=== PATIENT | male | born 1955 | race Caucasian/White ===

== ENCOUNTER 2021-09-02 07:29 | Outpatient (CLI) | payer MEDICARE, SELFPAY ==
--- NOTE | 2021-09-06 15:13 | WPDHOMESLEEP ---
Sleep Study - Home Unattended Date of Study: 09/02/21 <Laney Houston DO - Last Filed: 09/06/21 15:50> Ordering Provider: Alexandra Eid MD <Laney Houston DO - Last Filed: 09/06/21 15:50> Interpreting Provider: Laney Houston DO <Laney Houston DO - Last Filed: 09/06/21 15:50> Home Sleep Study Type: Watch PAT <Laney Houston DO - Last Filed: 09/06/21 15:50> Height: 1.8 m <Laney Houston DO - Last Filed: 09/06/21 15:50> Weight: 97.522 kg <Laney Houston DO - Last Filed: 09/06/21 15:50> Body Mass Index: 29.9 <Laney Houston DO - Last Filed: 09/06/21 15:50> Neck Circumference (inches): 17 <Laney Houston DO - Last Filed: 09/06/21 15:50> Embarrass: 6 <Laney Houston DO - Last Filed: 09/06/21 15:50> Reason for Sleep Study Unrefreshing sleep and daytime hypersomnia <Lnaey Houston DO - Last Filed: 09/06/21 15:50> Sleep History The patient is a 66-year-old male with hypertension, hyperlipidemia, pre diabetes and insomnia that had a home sleep test ordered by his primary care physician for evaluation of sleep apnea. The patient is currently retired. The patient states that he occasionally awakens from sleep short of breath. He rarely awakens at night with heartburn, belching or cough. He frequently snores. He rarely has trouble sleeping when he has a cold. He rarely wakes up gasping for air throughout the night. He occasionally has breathing problems at night. He occasionally sweats excessively at night. He rarely notices heart palpitations or irregular heartbeats during the night. He occasionally falls asleep during the day but never while driving. He rarely feels unable to move when waking up her falling asleep. He denies cataplexy. He occasionally experiences vivid dreamlike scenes upon awakening or falling asleep. He rarely has nightmares. He occasionally feels sad or depressed. He occasionally has anxiety. He occasionally notices parts of his body jerk. He frequently kicks during the night. He frequently experiences crawling and aching feelings in his legs but rarely has leg pain during the night. He rarely grinds his teeth during sleep but occasionally awakens with morning jaw pain. He rarely is bothered by pain during the day and is rarely awakened by pain during the night. He rarely wakes up feeling stiff in the morning. He rarely wakes up with sore or achy muscles. He occasionally wakes up with pain in the neck, spine or other joints. He goes to bed at 11:00 p.m. on both weekdays and weekends. It takes him 10-15 minutes to fall asleep. He wakes up 2-3 times throughout the night to urinate. He wakes up at 8:00 a.m. on both weekdays and weekends. He typically gets 8 hours of sleep per night. He will stay in bed for 10-15 minutes after waking up in the morning. He is currently single and lives alone. He does not consume any caffeinated beverages within 2 hours of bedtime. He does not engage in physical exercise before bedtime. He will watch television before falling asleep. He will take occasional naps in the afternoon or the evening and they are refreshing. He does not consume caffeinated beverages throughout the day. He will drink 2 alcoholic beverages per week. He denies tobacco or recreational drug use. <Laney Houston DO - Last Filed: 09/06/21 15:50> [facility] Past Medical History Medical History: Medical History Depression Dyslipidemia Essential (primary) hypertension Gout History of DVT (deep vein thrombosis) 2013 - post surgery Idiopathic gout Insomnia Pre-diabetes Unspecified osteoarthritis, unspecified site Vertigo <Laney Houston DO - Last Filed: 09/06/21 15:50> Surgical History Surgical History: Surgical History History of a
[2021-09-06 15:19] VITALS: BMI 29.9
== END 2021-09-03 10:26 | disposition home or self-care (01) ==
LOC: ANHCSM 07:30
PROVIDERS: PCP Family Medicine; Visit Provider Family Medicine
DX: R40.0 Somnolence (principal); G47.33 Obstructive sleep apnea (adult) (pediatric); G47.31 Primary central sleep apnea
CPT/HCPCS: 95800

== ENCOUNTER 2021-10-05 12:33 | Outpatient (CLI) | payer MEDICARE, SELFPAY ==
--- NOTE | 2021-10-05 12:52 | ECHO_ITS ---
Patient Info Name: Irvin Sullivan Age: 66 years : 1955 Gender: Male Ht: 70 in Wt: 215 lbs BSA: 2.22 m2 HR: 71 bpm BP: 125 / 80 mmHg Technical Quality: Fair Exam Date: 10/05/2021 1:07 PM Exam Location: [facility] Patient Status: Outpatient Admit Date: 10/05/2021 Staff Ordering Physician: Florencio Eid MD Residential Property Consultant: Dominga Herbert RDCS Attending Provider: Florencio Eid MD Exam Type: CA echo doppler color flow Study Info Indications G47.31 - PRIMARY CENTRAL SLEEP APNEA Complete two-dimensional, color flow and Doppler transthoracic echocardiogram is performed. Summary 1. Complete two-dimensional, color flow and Doppler transthoracic echocardiogram is performed. 2. Left ventricular chamber dimension is normal. 3. Left ventricular systolic function is normal, estimated at 60-65%. 4. There is mildly increased left ventricular wall thickness. 5. The left ventricular diastolic function is grade I diastolic dysfunction. 6. E/e' 11 is mildly elevated. 7. There is mild aortic valve sclerosis. 8. There is trace aortic valve regurgitation. 9. No pulmonary hypertension, estimated pulmonary arterial systolic pressure is 23 mmHg. Left Ventricle E/e' 11 is mildly elevated. Left ventricular chamber dimension is normal. Left ventricular systolic function is normal, estimated at 60-65%. There is mildly increased left ventricular wall thickness. The left ventricular diastolic function is grade I diastolic dysfunction. Right Ventricle Right ventricular chamber dimension is normal. Right ventricular systolic function is normal. Left Atria Left atrial chamber dimension is normal. Right Atria Right atrial chamber dimension is normal. Aortic Valve The aortic valve is trileaflet. There is mild aortic valve sclerosis. There is no aortic valve stenosis. There is trace aortic valve regurgitation. Pulmonic Valve There is no pulmonic regurgitation. Mitral Valve There is no mitral valve stenosis. There is no mitral valve regurgitation. Tricuspid Valve There is no tricuspid valve regurgitation. No pulmonary hypertension, estimated pulmonary arterial systolic pressure is 23 mmHg. Pericardium/Pleural There is no pericardial effusion. Inferior Vena Cava Normal inferior vena cava with >50% collapse upon inspiration consistent with normal right atrial pressure, 5 mmHg. Aorta The aortic root size at the sinus of Valsalva is normal. Left Ventricular Outflow Tract Name Value Normal LVOT 2D LVOT Diameter 2.0 cm LVOT Doppler LVOT Peak Gradient 8 mmHg LVOT Mean Gradient 5 mmHg LVOT VTI 23 cm LVOT VTI/AV VTI Ratio 0.8 LVOT Stroke Volume 70 ml LVOT CO 4.6 l/min LVOT CI 2.1 l/min/m2 Pulmonic Valve Name Value Normal
== END 2021-10-05 12:34 | disposition home or self-care (01) ==
PROVIDERS: PCP Family Medicine; Visit Provider Family Medicine
DX: G47.31 Primary central sleep apnea (principal); I10 Essential (primary) hypertension
CPT/HCPCS: 93306

== ENCOUNTER 2021-10-11 07:47 | Outpatient (CLI) | payer MEDICARE, SELFPAY ==
--- NOTE | 2021-10-19 16:39 | WPDSLEEPSTUD ---
Sleep Study Date of Study: 10/11/21 Ordering Provider: Alexandra Eid MD Interpreting Physician: Laney Houston DO Sleep Study Type: CPAP Titration Height: 1.78 m Weight: 98.883 kg Body Mass Index: 31.2 Neck Circumference (inches): 17 [place]: 7 Reason for Sleep Study The patient had an HSAT on 09/02/2021 that showed an AHI of 26.5. He also had a FITO of 15.1. Sleep History The patient is a 66-year-old male with hypertension, hyperlipidemia, pre diabetes and insomnia that had a home sleep test ordered by his primary care physician for evaluation of sleep apnea. The patient is currently retired. The patient states that he occasionally awakens from sleep short of breath. He rarely awakens at night with heartburn, belching or cough. He frequently snores. He rarely has trouble sleeping when he has a cold. He rarely wakes up gasping for air throughout the night. He occasionally has breathing problems at night. He occasionally sweats excessively at night. He rarely notices heart palpitations or irregular heartbeats during the night. He occasionally falls asleep during the day but never while driving. He rarely feels unable to move when waking up her falling asleep. He denies cataplexy. He occasionally experiences vivid dreamlike scenes upon awakening or falling asleep. He rarely has nightmares. He occasionally feels sad or depressed. He occasionally has anxiety. He occasionally notices parts of his body jerk. He frequently kicks during the night. He frequently experiences crawling and aching feelings in his legs but rarely has leg pain during the night. He rarely grinds his teeth during sleep but occasionally awakens with morning jaw pain. He rarely is bothered by pain during the day and is rarely awakened by pain during the night. He rarely wakes up feeling stiff in the morning. He rarely wakes up with sore or achy muscles. He occasionally wakes up with pain in the neck, spine or other joints. He goes to bed at 11:00 p.m. on both weekdays and weekends. It takes him 10-15 minutes to fall asleep. He wakes up 2-3 times throughout the night to urinate. He wakes up at 8:00 a.m. on both weekdays and weekends. He typically gets 8 hours of sleep per night. He will stay in bed for 10-15 minutes after waking up in the morning. He is currently single and lives alone. He does not consume any caffeinated beverages within 2 hours of bedtime. He does not engage in physical exercise before bedtime. He will watch television before falling asleep. He will take occasional naps in the afternoon or the evening and they are refreshing. He does not consume caffeinated beverages throughout the day. He will drink 2 alcoholic beverages per week. He denies tobacco or recreational drug use. [facility] Past Medical History Medical History Depression Dyslipidemia Essential (primary) hypertension Gout History of DVT (deep vein thrombosis) 2014 - post surgery Idiopathic gout Insomnia Pre-diabetes Unspecified osteoarthritis, unspecified site Vertigo Surgical History Surgical History History of ankle fusion Right -2011 History of total knee arthroplasty (~07/02/14) b/l 2013 S/P insertion of IVC (inferior vena caval) filter 2014 - insertion and removal Family History Family History Father Acute myocardial infarction Family history of Alzheimer's disease Malignant neoplasm of prostate Family history of coronary artery disease Social History Social History Smoking status: Never smoker Second hand tobacco smoke exposure: No Alcohol intake: current Alcohol use details: consumes 5+ hard liquor drinks weekly Substance use: never Substance use type: does not use and marijuana Gender identity
[2021-10-19 16:42] VITALS: BMI 31.2
== END 2021-10-12 07:37 | disposition home or self-care (01) ==
LOC: ANHCSM 07:48
PROVIDERS: PCP Family Medicine; Visit Provider Family Medicine
DX: G47.33 Obstructive sleep apnea (adult) (pediatric) (principal); G47.31 Primary central sleep apnea; G47.39 Other sleep apnea
CPT/HCPCS: 95811

== ENCOUNTER 2022-05-16 09:54 | Outpatient (CLI) | payer MEDICARE, SELFPAY ==
[2022-05-16 18:42] LABS: Basophils Percent Auto 0.7 % (0.2-1.2); Eosinophils Absolute Auto 0.4 K/mm3 (0-0.3); Eosinophils Percent Auto 8.3 % (0-4.4); Hematocrit 44.5 % (42.0-52.0); Immature Granulocyte Absolute 0.01 K/mm3 (0.00-0.031); Immature Granulocyte Percent A 0.2 % (0-0.5); Lymphocytes Absolute Auto 1.43 K/mm3 (0.9-3.2); Lymphocytes Percent Auto 31.4 % (18.3-44.2); Mean Corpuscular HGB Conc 33.7 g/dl (32-36); Mean Corpuscular Hemoglobin 30.6 pg (26-34); Mean Corpuscular Volume 90.8 fl (80-100); Mean Platelet Volume 10.3 fl (7.4-10.4); Monocytes Absolute Auto 0.5 K/mm3 (0.1-0.6); Monocytes Percent Auto 9.9 % (2.6-8.5); Neutrophils Absolute Auto 2.3 K/mm3 (1.3-6.7); Neutrophils Percent Auto 49.5 % (45.5-73.1); Platelet Count Result 171 k/mm3 (150-375); Red Cell Distribution Width 13.1 % (11.5-14.5); White Blood Count 4.6 K/mm3 (4.5-10.0)
[2022-05-16 18:55] LABS: Alanine Aminotransferase 28 U/L (6-50); Albumin Level 4.2 g/dL (3.5-5.1); Alkaline Phosphatase 47 U/L (38-126); Anion Gap 10 mmol/L (8-16); Aspartate Amino Transferase 32 U/L (17-59); Bilirubin,Total 0.7 mg/dL (0.2-1.3); Blood Urea Nitrogen 14 mg/dL (9-20); Calcium 8.8 mg/dL (8.4-10.2); Carbon Dioxide 26 mmol/L (22-30); Chloride 103 mmol/L (98-107); Cholesterol 158 mg/dL (0-200); Estimated Glomerular Filt Rate > 60; Glucose 121 mg/dL (65-110); HDL Direct 49 mg/dL; Potassium 4.7 mmol/L (3.4-5.0); Sodium 139 mmol/L (137-145); Triglycerides 63 mg/dL (<150); Uric Acid 6.2 mg/dL (3.5-8.5)
[2022-05-16 19:08] LABS: LDL Cholesterol Direct 90 mg/dL
[2022-05-16 19:12] LABS: Vitamin D 25 Hydroxy 48.8 ng/mL
== END 2022-05-16 09:55 | disposition home or self-care (01) ==
LOC: ANHGOSHLAB 09:57
PROVIDERS: PCP Family Medicine; Visit Provider Family Medicine
DX: I10 Essential (primary) hypertension (principal); R73.03 Prediabetes; E55.9 Vitamin D deficiency, unspecified; Z12.5 Encounter for screening for malignant neoplasm of prostate; G25.81 Restless legs syndrome; G47.33 Obstructive sleep apnea (adult) (pediatric); E78.5 Hyperlipidemia, unspecified; M10.00 Idiopathic gout, unspecified site
CPT/HCPCS: 36415; 80053; 80061; 82306; 82728; 83036; 84153; 84443; 84550; 85025; G0103

== ENCOUNTER 2022-05-19 08:27 | Outpatient (RCR) | payer MEDICARE, SELFPAY ==
--- NOTE | 2022-05-19 16:09 | PTOPEVAL1 ---
Assessment and note entered by Yuridia Das, PT Evaluation Information Assessment Status Evaluation Diagnosis dizziness and giddiness Onset several years Subjective Information Constant uncomfortable feeling. Standing up, quick motions increase discomfort. Not overwhelming don't feel on center all the time . Just uncomfortable, unsettling. Occasions with eyes were twitching . Had to fur puller while driving once d/t this. Reported Pain Level Pain Score 5: Self Report Assessment PT Clinical Summary Pt reports has had symptoms for mutltiple years. Reports does not have spinning sensation but does not feel on center . Vestibular testing with smooth pursuit, saccades, and other eye motion pt reports some increased nausea or increased symptoms, no nystagmus noted. However vestibular artery testing performed prior to Marcelino Hallpike was positive on left vertebral artery. Further testing ceased, pt educated on return to doctor for further testing and clearance to continue therapy. Doctor's office called and informed as well. No POC initiated currently. Will reassess with clearance from MD related to vertebral artery clearance. Plan of Care PT Services Indicated No These treatments will address the objective and functional deficits as defined above. The patient will be advanced safely and appropriately in order for the patient to progress towards his/her prior level of function. Additional exercises will be introduced and as well as a comprehensive home exercise program upon discharge, if needed, ?to ensure carryover of functional gains achieved in the clinic. This treatment plan has been reviewed and agreement upon by the patient.
--- NOTE | 2022-08-16 09:43 | PTOPDC ---
Assessment and note entered by Yuridia Das, PT Assessment Status Discharge - Pt Not Present Diagnosis dizzienss and giddiness Onset several years Assessment PT Clinical Summary Pt was referred back to MD for vertebral artery testing secondary to (+) testing in clinic. Pt has not returned to therapy since evaluation. This is being discharged from this plan of care. Should pt be able to return to therapy with MD clearance, we would be happy to initiate a new plan of care.
== END 2022-08-16 11:10 | disposition home or self-care (01) ==
LOC: ANHGOSHPT 08:27
PROVIDERS: PCP Family Medicine; Visit Provider Family Medicine
DX: R42 Dizziness and giddiness (principal)
CPT/HCPCS: 97162

== ENCOUNTER 2022-07-04 03:08 | Emergency (ER) | payer MEDICARE, SELFPAY ==
[2022-07-04] VITALS (13 sets, daily range): BP systolic 129–137; BP diastolic 75–85; PULSE 78–111; RESP 12–20; TEMP 36.6; O2SAT 93–96
--- NOTE | ~2022-07-04 | XR_ITS ---
EXAMINATION: XR chest 1V portable DATE: 07/04/2022 03:27 INDICATION: Chest pain. TECHNIQUE: A single frontal view of the chest was obtained. COMPARISON: CT abdomen and pelvis 01/24/2012 FINDINGS: There is no pneumonia, pleural effusion, or pneumothorax. The heart size is normal. There i s a left shoulder arthroplasty. IMPRESSION: 1. No acute cardiopulmonary disease. Reviewed, dictated and finalized at location A. RUCTION LIBRARIAN
--- NOTE | 2022-07-04 03:11 | ECG_ITS ---
Measurements Intervals [place] Rate: 91 P: [place]: 0 QRS: -56 QRSD: 116 T: 111 QT: 334 QTc: 411 Interpretive Statements SINUS RHYTHM WITH FREQUENT PAC'S LEFT ANTERIOR HEMIBLOCK POSSIBLE LEFT VENTRICULAR HYPERTROPHY [VOLTAGE CRITERIA PLUS LAE OR QRS WIDENING] I/aVL/V5/V6] NO PREVIOUS ECG AVAILABLE FOR COMPARISON Electronically Signed On 07-04-2022 6:27:53 PLANNING CONSULTANT by Chung Edwards M.D.
--- NOTE | 2022-07-04 03:20 | ED.GENADULT ---
HPI - General Adult General Chief complaint: Arrhythmia/Palpitations Stated complaint: PALPITATIONS Source: RN notes reviewed History of Present Illness HPI narrative: Patient presents emergency department from home via EMS for palpitations. Patient states symptoms again approximately 45 minutes prior to arrival states it awoke him from sleep and he states that he felt like his heart was beating irregularly. He denies having any chest pain or shortness of breath with the symptoms he denies any fevers or chills. States has had no history of an irregular heartbeat before in the past. States no increased caffeine use this evening he denies any tobacco use patient states that yesterday was his birthday and he was out drinking more alcohol than usual Related Data Allergies Allergy/AdvReac Type Severity Reaction Status Date / Time No Known Allergies Allergy Unknown Verified 07/04/22 03:14 Review of Systems Review of Systems: Gen.: Denies fevers or chills ENT: Denies congestion Respiratory: Denies shortness of breath or cough CV: see HPI GI: Denies abdominal pain nausea, emesis or diarrhea Musculoskeletal: Denies back pain or muscle pain Neuro: Denies numbness, tingling, weakness or focal weakness Skin: Denies rash Except as documented, all other systems reviewed and negative [facility] Past Medical History Medical History Depression Dyslipidemia Essential (primary) hypertension Gout History of DVT (deep vein thrombosis) 2013 - post surgery Idiopathic gout Insomnia Pre-diabetes Unspecified osteoarthritis, unspecified site Vertigo Vitamin D deficiency Surgical History Surgical History History of ankle fusion Right -2011 History of left shoulder replacement (~06/2020) History of total knee arthroplasty (~07/02/14) b/l 2013 S/P insertion of IVC (inferior vena caval) filter 2014 - insertion and removal Family History Family History Father Acute myocardial infarction Family history of Alzheimer's disease Malignant neoplasm of prostate Family history of coronary artery disease Social History Social History Smoking status: Never smoker Second hand tobacco smoke exposure: No Alcohol intake: current Alcohol use details: consumes 5+ hard liquor drinks weekly Substance use: never Substance use type: does not use and marijuana Lack of Transportation: No Lack of Food: Never True Current Housing: I Have Housing Concerned About Future Housing: No Difficulty Paying Gas/Electric Bills: No Difficulty Paying for Meds: No Currently Unemployed: No Education: Bachelor's Degree Difficulty w/ Childcare or Family Care: No Gender identity (if verbalized by the patient): Male Exam Narrative: APPEARANCE: No acute distress, nontoxic, resting in bed EYES: EOMI HEENT: Normocephalic, atraumatic, OMM RESPIRATORY: No respiratory distress Clear to auscultation bilaterally with no rhonchi wheezing or rales. CARDIOVASCULAR: Irregular irregular without murmurs rubs or gallops. ABDOMINAL: Soft, nontender, nondistended, no rebound or guarding MUSCULOSKELETAl: Moves all extremities. No clubbing, cyanosis or edema. NEURO: Awake and alert. Following commands, speech normal, no focal deficits SKIN:: Warm, dry. No rashes lesions or abrasions PSYCHIATRIC: Normal affect/mood, Course Course Emergency Course: Patient with a CHADS2 score of 1 Patient states he is on metoprolol and amlodipine at home he normally takes his medications around 8 in the morning Discussed with Dr. Edwards presentation work-up this time recommends patient's metoprolol be increased to 50 mg daily recommends no anticoagulation Discussed with patient results of workup and diagnosis. Discussed need for follow-up with primary
[2022-07-04 03:32] LABS: Basophils Percent Auto 0.7 % (0.2-1.2); Eosinophils Absolute Auto 0.4 K/mm3 (0-0.3); Hematocrit 42.4 % (42.0-52.0); Hemoglobin 14.6 g/dL (14.0-18.0); Immature Granulocyte Absolute 0.01 K/mm3 (0.00-0.031); Immature Granulocyte Percent A 0.2 % (0-0.5); Immature Platelet Fraction Pct 3.5 % (0.9-11.2); Lymphocytes Absolute Auto 1.69 K/mm3 (0.9-3.2); Lymphocytes Percent Auto 30.8 % (18.3-44.2); Mean Corpuscular HGB Conc 34.4 g/dl (32-36); Mean Corpuscular Hemoglobin 30.3 pg (26-34); Monocytes Absolute Auto 0.6 K/mm3 (0.1-0.6); Monocytes Percent Auto 10.6 % (2.6-8.5); Neutrophils Absolute Auto 2.7 K/mm3 (1.3-6.7); Neutrophils Percent Auto 49.7 % (45.5-73.1); Platelet Count Result 149 k/mm3 (150-375); Red Blood Count 4.82 M/mm3 (4.6-6.20); Red Cell Distribution Width 12.6 % (11.5-14.5); White Blood Count 5.5 K/mm3 (4.5-10.0)
[2022-07-04 03:36] LABS: Partial Thromboplastin Time 27.3 SECONDS (22.3-36.8)
[2022-07-04 03:39] LABS: Alanine Aminotransferase 32 U/L (6-50); Albumin Level 4.3 g/dL (3.5-5.1); Alkaline Phosphatase 62 U/L (38-126); Anion Gap 5 mmol/L (8-16); Aspartate Amino Transferase 35 U/L (17-59); Bilirubin,Total 0.4 mg/dL (0.2-1.3); Blood Urea Nitrogen 17 mg/dL (9-20); Calcium 8.6 mg/dL (8.4-10.2); Carbon Dioxide 29 mmol/L (22-30); Chloride 105 mmol/L (98-107); Estimated CRCL calculation 91 ml/min; Estimated Glomerular Filt Rate > 60; Glucose 123 mg/dL (65-110); Lipase 84 U/L (23-300); Magnesium 1.9 mg/dL (1.6-2.3); Potassium 3.7 mmol/L (3.4-5.0); Sodium 139 mmol/L (137-145)
[2022-07-04 03:51] LABS: Troponin I < 0.012 ng/mL (0.000-0.034)
[2022-07-04] MEDS: METOPROLOL SUCCINATE EXT REL 50 MG TABCR PO (05:10)
[2022-07-04 05:14] LABS: Influenza A QL RT-PCR Negative (Negative); Influenza B QL RT-PCR Negative (Negative); SARS-CoV-2 RNA PCR Negative
[2022-07-04 06:53] LABS: Troponin I < 0.012 ng/mL (0.000-0.034)
== END 2022-07-04 07:22 | disposition home or self-care (01) ==
PROVIDERS: Emergency Provider Emergency Medicine; PCP Family Medicine
DX: I48.91 Unspecified atrial fibrillation (principal); Z20.822 Contact with and (suspected) exposure to COVID-19; E78.5 Hyperlipidemia, unspecified; I10 Essential (primary) hypertension; M10.9 Gout, unspecified; R73.03 Prediabetes; M10.00 Idiopathic gout, unspecified site; M19.90 Unspecified osteoarthritis, unspecified site; E55.9 Vitamin D deficiency, unspecified; Z86.718 Personal history of other venous thrombosis and embolism; Z96.612 Presence of left artificial shoulder joint; Z96.653 Presence of artificial knee joint, bilateral; I44.4 Left anterior fascicular block
CPT/HCPCS: 36415; 71045; 80053; 83690; 83735; 84443; 84484; 85025; 85055; 85610; 85730; 87636; 93005; 99284; A9270

== ENCOUNTER 2022-07-07 10:01 | Outpatient (CLI) | payer MEDICARE, SELFPAY ==
--- NOTE | ~2022-07-07 | MR_ITS ---
MRI of the brain Clinical History: Vertigo Technique: Axial and sagittal T1-weighted images were acquired. These were followed by axial T2-weigh maximo, diffusion weighted, gradient, and FLAIR images. Findings: There is no acute infarct, intracranial hemorrhage, or mass lesion. There are mild to moder ate chronic white matter changes in the periventricular white matter bilaterally. There is a focal ar ea of slightly more prominent FLAIR hyperintense signal in the anterior left temporal lobe (axial FLA IR image 12). Ventricles and subarachnoid spaces are unremarkable. Orbits are unremarkable. Paranasal sinuses and m astoid air cells are clear. Major intracranial flow voids are grossly intact. Sagittal midline structures are intact. IMPRESSION: Focal area of FLAIR hyperintense signal in the anterior left temporal lobe in the subcortical white m atter. This could reflect chronic microvascular ischemic change, though the location and relative pro minence are somewhat atypical. Consider postcontrast examination to more definitively exclude any enh ancing pathologic process at this location, as well as possibly follow-up exam in 3-6 months to asses s for stability, especially if patient's symptoms persist. [id number] background typical chronic microvascular ischemic changes in the periventricular whi te matter bilaterally. Reviewed, dictated and finalized at location [] RAM EVALUATION CONSULTANT IMPRESSION: Focal area of FLAIR hyperintense signal in the anterior left temporal lobe in t he subcortical white matter. This could reflect chronic microvascular ischemic change, though the location and relative prominence are somewhat atypical. Cons ider postcontrast examination to more definitively exclude any enhancing pathol ogic process at this location, as well as possibly follow-up exam in 3-6 months to assess for stability, especially if patient's symptoms persist. [id number] background typical chronic microvascular ischemic changes in t he periventricular white matter bilaterally.
--- NOTE | ~2022-07-07 | CT_ITS ---
CT ANGIOGRAM NECK AND HEAD History: Vertigo, dizziness. Technique: Serial spiral axial images through the head and neck were obtained during arterial phase I V injection of 100 cc of Omnipaque 350. 3-D postprocessing and MIP images were then reconstructed on the remote workstation. Dose reduction technique was used on this scan by utilizing automated exposur e control and iterative reconstruction technique. The dose-length product (DLP) was 1866.31 mGy-cm. CTA neck findings: There are minimal calcified plaques at the proximal internal carotid arteries juanjose aterally without stenosis. The proximal right internal carotid artery demonstrates 0% stenosis relati ve to the normal distal artery lumen diameter. The proximal left internal carotid artery demonstrates 0% stenosis relative to the normal distal artery lumen diameter. Common carotid and external carotid arteries are patent bilaterally. CTA head findings: Distal vertebral, basilar artery, and posterior cerebral arteries are patent. Dist al internal carotid arteries, middle cerebral arteries, and anterior cerebral arteries are patent. No large vessel occlusion. No stenosis or aneurysm. Impression: No significant abnormality seen. Reviewed, dictated and finalized at location [] LTY MAKER Impression: No significant abnormality seen.
== END 2022-07-07 10:02 | disposition home or self-care (01) ==
PROVIDERS: PCP Family Medicine; Visit Provider Student in an Organized Health Care Education/Training Program
DX: R42 Dizziness and giddiness (principal); R93.0 Abnormal findings on diagnostic imaging of skull and head, not elsewhere classified
CPT/HCPCS: 70496; 70498; 70551; Q9967

== ENCOUNTER 2022-08-09 10:42 | Outpatient (CLI) | payer MEDICARE, SELFPAY ==
--- NOTE | ~2022-08-09 | MR_ITS ---
MRI of the brain Clinical History: Abnormal MR finding Technique: Axial and sagittal T1-weighted images were acquired. These were followed by axial T2-weigh maximo, diffusion weighted, gradient, and FLAIR images. Following intravenous administration of 19 cc Mu ltiHance gadolinium, T1-weighted fat-sat imaging was performed in the axial, coronal, and sagittal pl anes. COMPARISON: 07/07/2022 Findings: No acute infarct or intracranial hemorrhage seen. Again identified is focal area of promine nt FLAIR hyperintense signal at the anterior left temporal lobe. Mild background chronic white matter changes in the periventricular white matter otherwise are also stable. Ventricles and subarachnoid spaces are unremarkable. Orbits are unremarkable. Paranasal sinuses and m astoid air cell are clear. Major intracranial flow voids are intact. Sagittal midline structures are intact. No abnormal postcontrast enhancement identified. In particular, no enhancement associated with the FL AIR abnormality at the anterior left temporal lobe. IMPRESSION: Stable focal area of avid FLAIR hyperintensity at the anterior left temporal lobe, without postcontra st enhancement. This remains nonspecific. Recommend follow-up MR in 6-12 months. Additional mild chronic bilateral white matter changes are also stable from prior exam. Reviewed, dictated and finalized at location M. TEGIC PROCUREMENT MANAGER IMPRESSION: Stable focal area of avid FLAIR hyperintensity at the anterior left temporal lo be, without postcontrast enhancement. This remains nonspecific. Recommend follo w-up MR in 6-12 months. Additional mild chronic bilateral white matter changes are also stable from lisseth or exam.
== END 2022-08-09 10:43 | disposition home or self-care (01) ==
PROVIDERS: PCP Family Medicine; Visit Provider Student in an Organized Health Care Education/Training Program
DX: R90.89 Other abnormal findings on diagnostic imaging of central nervous system (principal)
CPT/HCPCS: 70553; A9577

== ENCOUNTER 2023-05-23 14:10 | Outpatient (CLI) | payer MEDICARE, SELFPAY ==
[2023-05-23 18:42] LABS: Alanine Aminotransferase 51 U/L (6-50); Albumin Level 4.7 g/dL (3.5-5.1); Alkaline Phosphatase 44 U/L (38-126); Anion Gap 6 mmol/L (8-16); Aspartate Amino Transferase 46 U/L (17-59); Bilirubin,Total 0.8 mg/dL (0.2-1.3); Blood Urea Nitrogen 17 mg/dL (9-20); Calcium 9.7 mg/dL (8.4-10.2); Carbon Dioxide 30 mmol/L (22-30); Chloride 102 mmol/L (98-107); Cholesterol 226 mg/dL (0-200); Estimated Glomerular Filt Rate > 60; Glucose 103 mg/dL (65-110); HDL Direct 38 mg/dL; Potassium 4.2 mmol/L (3.4-5.0); Sodium 138 mmol/L (137-145); Triglycerides 326 mg/dL (<150); Uric Acid 7.2 mg/dL (3.5-8.5)
[2023-05-23 18:57] LABS: LDL Cholesterol Direct 98 mg/dL
[2023-05-23 19:10] LABS: Prostate Specific Antigen 4.3 ng/mL (< OR = 4.0)
[2023-05-23 20:05] LABS: Basophils Percent Auto 0.6 % (0.2-1.2); Eosinophils Absolute Auto 0.2 K/mm3 (0-0.3); Eosinophils Percent Auto 2.7 % (0-4.4); Hematocrit 45.1 % (42.0-52.0); Hemoglobin 15.7 g/dL (14.0-18.0); Immature Granulocyte Absolute 0.02 K/mm3 (0.00-0.031); Immature Granulocyte Percent A 0.3 % (0-0.5); Lymphocytes Absolute Auto 1.48 K/mm3 (0.9-3.2); Lymphocytes Percent Auto 22.6 % (18.3-44.2); Mean Corpuscular HGB Conc 34.8 g/dl (32-36); Mean Corpuscular Hemoglobin 30.4 pg (26-34); Mean Corpuscular Volume 87.4 fl (80-100); Mean Platelet Volume 10.5 fl (7.4-10.4); Monocytes Absolute Auto 0.6 K/mm3 (0.1-0.6); Monocytes Percent Auto 8.9 % (2.6-8.5); Neutrophils Absolute Auto 4.3 K/mm3 (1.3-6.7); Neutrophils Percent Auto 64.9 % (45.5-73.1); Platelet Count Result 174 k/mm3 (150-375); Red Blood Count 5.16 M/mm3 (4.6-6.20); Red Cell Distribution Width 12.3 % (11.5-14.5); White Blood Count 6.6 K/mm3 (4.5-10.0)
[2023-05-23 21:10] LABS: Vitamin D 25 Hydroxy 51.6 ng/mL
== END 2023-05-23 14:11 | disposition home or self-care (01) ==
LOC: ANHGOSHLAB 14:11
PROVIDERS: PCP Family Medicine; Visit Provider Family Medicine
DX: E78.5 Hyperlipidemia, unspecified (principal); E53.8 Deficiency of other specified B group vitamins; M10.00 Idiopathic gout, unspecified site; R73.03 Prediabetes; I10 Essential (primary) hypertension; Z12.5 Encounter for screening for malignant neoplasm of prostate; E55.9 Vitamin D deficiency, unspecified
CPT/HCPCS: 36415; 80053; 80061; 82306; 82607; 83036; 84153; 84443; 84550; 85025; G0103

== ENCOUNTER 2023-06-28 10:30 | Outpatient (CLI) | payer MEDICARE, SELFPAY ==
[2023-06-28 12:54] LABS: Alanine Aminotransferase 47 U/L (6-50); Albumin Level 4.7 g/dL (3.5-5.1); Alkaline Phosphatase 51 U/L (38-126); Anion Gap 12 mmol/L (8-16); Aspartate Amino Transferase 53 U/L (17-59); Blood Urea Nitrogen 27 mg/dL (9-20); Calcium 9.8 mg/dL (8.4-10.2); Carbon Dioxide 25 mmol/L (22-30); Chloride 100 mmol/L (98-107); Estimated Glomerular Filt Rate > 60; Glucose 149 mg/dL (65-110); Potassium 4.2 mmol/L (3.4-5.0); Sodium 137 mmol/L (137-145)
[2023-06-30 21:50] LABS: PSA, Free 0.65 ng/mL; PSA, Total 3.1 ng/mL (<=4.0); Percent Free Prostate Spec Ag 21 % (>25)
== END 2023-06-28 10:31 | disposition home or self-care (01) ==
LOC: ANHGOSHLAB 10:31
PROVIDERS: PCP Family Medicine; Visit Provider Family Medicine
DX: R74.01 Elevation of levels of liver transaminase levels (principal); R97.20 Elevated prostate specific antigen [PSA]; I10 Essential (primary) hypertension
CPT/HCPCS: 36415; 80053; 84153; 84154

== ENCOUNTER 2023-07-07 03:48 | Day surgery (SDC) | payer MEDICARE, SELFPAY ==
[2023-06-22 09:51] VITALS: BMI 30.7
--- NOTE | 2023-07-05 12:22 | SUR.PREOP ---
Patient called regarding upcoming procedure. Reviewed preop instructions, appointment times, and procedure prep.
[2023-07-07 11:50] VITALS: BP 137/89; PULSE 78; RESP 18; TEMP 36.3; O2SAT 98; BMI 30.4
[2023-07-07] MEDS: LACTATED RINGERS 1,000 ML 150 ML IV CONT (12:17)
--- NOTE | 2023-07-07 12:37 | WPDANESEPPF ---
Anes - Initial Pre Proc Eval Procedure: Operation Date: 07/07/23 13:00 Proposed Procedures p Colonoscopy - True Haider MD Date/Time: 07/07/23 12:37 Surgeon: True Haider MD Pre Op Diagnosis: Hx colon polyps Patient Data Age: 68 Gender: M Height: 1.8 m Weight: 98.8 kg Last Vital Signs Temp 36.3 C L 07/07/23 11:50 Pulse 78 07/07/23 11:50 Resp 18 07/07/23 11:50 BP 137/89 07/07/23 11:50 Pulse Ox 98 07/07/23 11:50 O2 Del Method Room Air 07/07/23 11:50 Allergies Allergy/AdvReac Type Severity Reaction Status Date / Time No Known Allergies Allergy Unknown Verified 07/07/23 12:02 Home Medications Medication Instructions Recorded Confirmed Type allopurinol 100 mg tablet 100 mg PO DAILY #90 tabs 11/03/22 07/07/23 Rx amlodipine 5 mg tablet 5 mg PO DAILY #90 tabs 05/19/23 07/07/23 Rx metoprolol succinate 50 mg 50 mg PO DAILY #90 tabs 05/19/23 07/07/23 Rx tablet,extended release 24 hr pravastatin 40 mg tablet 40 mg PO QHS #90 tabs 06/28/23 07/07/23 Rx Patient hx anesthesia problems: none Family hx anesthesia problems: none Results Review: All pre-operative results and documents have been reviewed as part of the pre-operative evaluation. [facility] Past Medical History Medical History Depression Dyslipidemia Essential (primary) hypertension Gout Heart murmur History of colon polyps History of DVT (deep vein thrombosis) 2013 - post surgery Idiopathic gout Insomnia Pre-diabetes Unspecified osteoarthritis, unspecified site Vertigo Vitamin D deficiency Surgical History Surgical History History of ankle fusion Right -2011 History of left shoulder replacement (~06/2020) History of total knee arthroplasty (~07/02/14) b/l 2013 S/P insertion of IVC (inferior vena caval) filter 2013 - insertion and removal Family History Family History Father Acute myocardial infarction Family history of Alzheimer's disease Malignant neoplasm of prostate Family history of coronary artery disease Social History Social History Smoking status: Never smoker Second hand tobacco smoke exposure: No Alcohol intake: current Drinks per week: 6 Alcohol use details: consumes 5+ hard liquor drinks weekly Substance use: never Substance use type: does not use Lack of Transportation: No Lack of Food: Never True Current Housing: I Have Housing Concerned About Future Housing: No Difficulty Paying Gas/Electric Bills: No Difficulty Paying for Meds: No Currently Unemployed: No Education: Bachelor's Degree Difficulty w/ Childcare or Family Care: No Living arrangements: with family Gender identity (if verbalized by the patient): Male Spiritual care concerns: No Anes - Eval Final PreProcedure Day of Procedure 07/07/23 12:37 Patient weight: obese Heart: regular rate and rhythm Lungs: clear to auscultation Airway: Mallampati scale class II Neurological: alert and oriented Last oral intake: >/= 8 hours ASA classification: III Emergent: no Anesthetic plan: proceed Anesthesia type and monitoring: general GIVS and standard monitoring Results Review: All pre-operative results and documents have been reviewed as part of the pre-operative evaluation. Informed Consent: The patient's anesthetic plan and its attendant risks and benefits were discussed with the patient/family/POA. Questions were solicited and answers provided to the satisfaction of the patient/family/POA.
--- NOTE | 2023-07-07 13:37 | PM.HPGS ---
History of Present Illness History of Present Illness Consent: Risks, benefits, and alternatives have been discussed and questions answered. Patient agrees to proceed with procedure. Chief complaint: Hx colon polyps Narrative: Irvin Sullivan is a 68 year old male here for screening colonoscopy, last on in 2018 with hyperplastic polyps Review of Systems Constitutional: Constitutional: Denies headache(s) and Denies weakness Eyes: Eyes: Denies blurry vision ENT: Reports Normal hearing present, Denies headache(s) and Denies neck pain Cardiovascular: Cardiovascular: Denies chest pain and Denies dyspnea Respiratory: Respiratory: Denies dyspnea Gastrointestinal: Gastrointestinal: Reports no additional gastrointestinal complaints Genitourinary: Genitourinary: Denies dysuria Musculoskeletal: Musculoskeletal: Denies neck pain Integumentary/Breasts: Skin/Breast: Denies dry skin Neurologic: Reports Normal hearing present, Denies headache(s) and Denies weakness Psychiatric: Psychiatric: Denies anxiety Endocrine: Endocrine: Denies change in body appearance Hematologic/Lymphatic: Hematologic/Lymphatic: Denies easy bleeding Allergic/Immunologic: Allergic/Immunologic: Denies urticaria PMFSH Past Medical History Medical History (Updated 07/07/23 @ 13:38 by True Haider MD) Colon cancer screening Depression Dyslipidemia Essential (primary) hypertension Gout Heart murmur History of colon polyps History of DVT (deep vein thrombosis) 2014 - post surgery Idiopathic gout Insomnia Pre-diabetes Unspecified osteoarthritis, unspecified site Vertigo Vitamin D deficiency Surgical History Surgical History History of ankle fusion Right -2011 History of left shoulder replacement (~06/2020) History of total knee arthroplasty (~07/02/14) b/l 2013 S/P insertion of IVC (inferior vena caval) filter 2014 - insertion and removal Family History Family History Father Acute myocardial infarction Family history of Alzheimer's disease Malignant neoplasm of prostate Family history of coronary artery disease Social History Social History Smoking status: Never smoker Second hand tobacco smoke exposure: No Alcohol intake: current Drinks per week: 6 Alcohol use details: consumes 5+ hard liquor drinks weekly Substance use: never Substance use type: does not use Lack of Transportation: No Lack of Food: Never True Current Housing: I Have Housing Concerned About Future Housing: No Difficulty Paying Gas/Electric Bills: No Difficulty Paying for Meds: No Currently Unemployed: No Education: Bachelor's Degree Difficulty w/ Childcare or Family Care: No Living arrangements: with family Gender identity (if verbalized by the patient): Male Spiritual care concerns: No Meds Home Medications and Allergies Home Medications Medication Instructions Recorded Confirmed Type allopurinol 100 mg tablet 100 mg PO DAILY #90 tabs 11/03/22 07/07/23 Rx amlodipine 5 mg tablet 5 mg PO DAILY #90 tabs 05/19/23 07/07/23 Rx metoprolol succinate 50 mg 50 mg PO DAILY #90 tabs 05/19/23 07/07/23 Rx tablet,extended release 24 hr pravastatin 40 mg tablet 40 mg PO QHS #90 tabs 06/28/23 07/07/23 Rx Allergies Allergy/AdvReac Type Severity Reaction Status Date / Time No Known Allergies Allergy Unknown Verified 07/07/23 12:02 Vital Signs Vital Signs - 24 hr 07/07/23 11:50 Temperature 97.4 F L Pulse Rate 78 Respiratory Rate 18 Blood Pressure 137/89 Pulse Oximetry 98 Oxygen Delivery Room Air Exam Const: General: comfortable and no acute distress HENMT: Face/Nose/Sinus: Normal nares present Eyes: General: appearance normal, both eyes and all related structures Neck: Neck: no JVD Resp: Auscultation: clear to
[2023-07-07 13:57] VITALS: BP 107/73; PULSE 62; RESP 12; O2SAT 95
[2023-07-07 14:07] VITALS: BP 112/75; PULSE 58; RESP 12; O2SAT 95
[2023-07-07 14:17] VITALS: BP 109/90; PULSE 61; RESP 22; O2SAT 99
--- NOTE | 2023-07-07 16:28 | SUR.PHASEII ---
PT CAME TO UNIT SAYING HE LOST HIS PHONE FROM WHEN HE WAS HERE. STAFF WENT THRU THE [employer] LOOKING FOR CELL PHONE AND WERE UNABLE TO LOCATE IT. ASKED THE PATIENT TO CHECK THE RESPIRATORY PHYSICIAN'S CAR BECAUSE SOMETIMES THE CELL PHONE GETS LOST IN BETWEEN THE SEAT. [phone] CALL PATIENT'S DAUGHTER -EMERGENCY CONTACT- LEFT MESSAGE TO LET HER KNOW HER DAD'S PHONE IS MISSING AND ASKED TO PASS THE MESSAGE ON TO CHECK THE RESPIRATORY PHYSICIAN'S CAR AND UNDER THE SEATS.
--- NOTE | 2023-07-07 16:52 | SUR.PHASEII ---
Daughter Holly called and stated the phone was found in the Son's car
== END 2023-07-07 14:38 | disposition home or self-care (01) ==
PROVIDERS: PCP Family Medicine; Visit Provider Internal Medicine Gastroenterology
PROC: 0DJD8ZZ Inspection of Lower Intestinal Tract, Via Natural or Artificial Opening Endoscopic (ICD-10-PCS; CPT 45378; principal; 2023-07-07 13:00)
DX: Z12.11 Encounter for screening for malignant neoplasm of colon (principal); K57.30 Diverticulosis of large intestine without perforation or abscess without bleeding; D12.6 Benign neoplasm of colon, unspecified; K64.8 Other hemorrhoids; I10 Essential (primary) hypertension; E78.5 Hyperlipidemia, unspecified; M10.9 Gout, unspecified
CPT/HCPCS: 45385; 88305; J7120

== ENCOUNTER 2024-05-22 14:36 | Outpatient (CLI) | payer MEDICARE, SELFPAY ==
[2024-05-22 20:04] LABS: Basophils Percent Auto 0.7 % (0.2-1.2); Eosinophils Absolute Auto 0.2 K/mm3 (0-0.3); Eosinophils Percent Auto 4.4 % (0-4.4); Hematocrit 44.3 % (42.0-52.0); Hemoglobin 15.2 g/dL (14.0-18.0); Immature Granulocyte Absolute 0.01 K/mm3 (0.00-0.031); Immature Granulocyte Percent A 0.2 % (0-0.5); Lymphocytes Absolute Auto 1.66 K/mm3 (0.9-3.2); Lymphocytes Percent Auto 30.2 % (18.3-44.2); Mean Corpuscular HGB Conc 34.3 g/dl (32-36); Mean Corpuscular Hemoglobin 30.5 pg (26-34); Mean Corpuscular Volume 88.8 fl (80-100); Mean Platelet Volume 10.1 fl (7.4-10.4); Monocytes Absolute Auto 0.6 K/mm3 (0.1-0.6); Monocytes Percent Auto 10.6 % (2.6-8.5); Neutrophils Percent Auto 53.9 % (45.5-73.1); Platelet Count Result 155 k/mm3 (150-375); Red Blood Count 4.99 M/mm3 (4.6-6.20); Red Cell Distribution Width 12.6 % (11.5-14.5); White Blood Count 5.5 K/mm3 (4.5-10.0)
[2024-05-22 20:29] LABS: Alanine Aminotransferase 39 U/L (6-50); Albumin Level 4.8 g/dL (3.5-5.1); Alkaline Phosphatase 44 U/L (38-126); Anion Gap 12 mmol/L (4-12); Aspartate Amino Transferase 42 U/L (17-59); Blood Urea Nitrogen 18 mg/dL (9-20); Calcium 9.6 mg/dL (8.4-10.2); Carbon Dioxide 27 mmol/L (22-30); Chloride 102 mmol/L (98-107); Cholesterol 202 mg/dL (0-200); Estimated Glomerular Filt Rate > 60; Glucose 105 mg/dL (65-110); HDL Direct 48 mg/dL; Potassium 4.2 mmol/L (3.4-5.0); Sodium 141 mmol/L (137-145); Triglycerides 137 mg/dL (<150); Uric Acid 6.6 mg/dL (3.5-8.5)
[2024-05-22 20:39] LABS: LDL Cholesterol Direct 104 mg/dL
[2024-05-22 20:57] LABS: Prostate Specific Antigen 4.1 ng/mL (< OR = 4.0)
[2024-05-22 20:59] LABS: Vitamin D 25 Hydroxy 47.8 ng/mL
[2024-05-22 21:32] LABS: Hemoglobin A1C 6.2 % (<5.7)
== END 2024-05-22 14:37 | disposition home or self-care (01) ==
LOC: ANHGOSHLAB 14:37
PROVIDERS: PCP Family Medicine; Visit Provider Family Medicine
DX: E55.9 Vitamin D deficiency, unspecified (principal); Z12.5 Encounter for screening for malignant neoplasm of prostate; M10.00 Idiopathic gout, unspecified site; I10 Essential (primary) hypertension; E53.8 Deficiency of other specified B group vitamins; R73.03 Prediabetes; E78.5 Hyperlipidemia, unspecified
CPT/HCPCS: 36415; 80053; 80061; 82306; 82607; 83036; 84153; 84443; 84550; 85025; G0103

== ENCOUNTER 2025-01-27 11:39 | Outpatient (CLI) | payer MEDICARE, SELFPAY ==
--- NOTE | ~2025-01-27 | XR_ITS ---
Cervical Spine: AP, lateral, open-mouth views Clinical History: Torticollis Findings: There is reversal normal cervical lordosis. There is minimal grade 1 anterolisthesis of C2 over C3, and of C4 over C5. There is advanced degenerative disc narrowing at C5-C6 and C6-C7. There i s moderate to advanced facet arthropathy throughout the cervical spine. No instability evident on fle xion or extension. Pre-vertebral soft tissues are unremarkable. Impression: Minimal grade 1 anterolisthesis of C2 over C3, and of C4 over C5. Advanced degenerative spondylosis of the lower cervical spine, as above. Reviewed, dictated and finalized at location M. Impression: Minimal grade 1 anterolisthesis of C2 over C3, and of C4 over C5. Advanced degenerative spondylosis of the lower cervical spine, as above.
--- OUTSIDE RECORDS SUMMARY | 2025-01-27 11:44 | XMS_ITS | Continuity of Care Document ---
Author Organization [facility] Address [address] [place] [address] Phone Care Team Providers Care Pedigree Researcher Name Role Phone Roger GEE MD, Nando [...] Providers Copied on Encounter [facility], [address] [address], [place], [place], [id number], [place] [phone] [facility] [employer] [facility] No Information 2 Roger Collier. [address] [address], [place], [place], [id number] , [place]. tel: [phone] [facility] [employer] [facility], [address] [place] [address], [id number], [place] [phone] [facility] [employer] [facility] left shoulder (chief complaint) Bicipital tendinitis, left shoulderPresence of left artificial shoulder joint 1 Violet Powell. [address] [place] [address], [id number] , [place]. tel: [phone] [facility] [employer] [facility], [address] [place] [address], [id number], [place] [phone] [facility] [employer] [facility] Left shoulder (chief complaint) Presence of left artificial shoulder joint 0 Violet Powell. [address] [place] [address], [id number] , [place]. tel: [phone] [facility] [employer] [facility], [address] [place] [address], [id number], [place] [phone] [facility] [employer] [facility] left shoulder (chief complaint) Presence of left artificial shoulder joint 0 Glo Winters. [address], [id number] , [place]. tel: [phone] [facility] [employer] [facility], [address] [place] [address], [id number], [place] tel:[phone] [facility] [employer] [facility] No Information 0 Violetjanusz Powell. [address] [place] [address], [id number] , [place]. tel: [phone] Office/outpa tient visit,est, mod [facility], [address] [place] [address], [id number], tel:[phone] [facility] Shoulder Pain (chief complaint) Primary osteoarthritis, left shoulder 0 Violet Powell. [address] [place] [address], [address], [id number] , . tel:[phone] Office/outpa tient visit,new, [facility], [address], [id number], [phone] [facility] shoulder pain on the left greater than the right (chief complaint) Primary osteoarthritis, left shoulderPrimary osteoarthritis, right shoulderBicipital tendinitis, left shoulderBicipital tendinitis, right shoulder 9 Roger Collier. [address] [place] [address], [id number] , . tel: [phone] Referring Provider: Nando Cerda, [address] [place] [address], [place], [address] . tel:[phone] Family History Family Member Type Diagnosis Age At Onset Brother Problem (finding) Cancer, unknown Father Problem (finding) Cancer, unknown Father Problem (finding) Osteoarthritis Brother Problem (finding) Gout Payers Payer name Insurance type Covered libertarian ID Authoriza tion(s) [facility] CI [id number] Social History Type Description Quantity Date Captured [...]
--- OUTSIDE RECORDS SUMMARY | 2025-01-27 11:44 | XMS_ITS | Clinical Summary ---
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 OPERATIONS COORDINATOR Gender Identity Not on file Sexual Orientation Not on file Plan of Treatment Health Maintenance Due Date Last Done Comments DTAP/TDAP/TD VACCINES (1 - Tdap) 1974 COLORECTAL SCREENING 2000 Colorectal Cancer Screening 2000 FIT-DNA Q 3 years 2000 FIT/FOBT Q 1 year 2000 Flex Sig/CT Colonography Q 5 years 2000 PNEUMOCOCCAL VACCINE 50+ YEARS (1 of 1 - PCV) 07/04/20 05 ZOSTER VACCINE (1 of 2) 2005 INFLUENZA VACCINE (#1) 2025 RSV VACCINE (60+ or ) (1 - 1-dose 75+ series) 2030 Care Teams Lawn Mower Sharpener Relationship Specialty Start Date End Date Alexandra Eid MD [address] [place] [address] PCP - General Family Practice 06/25/18
--- OUTSIDE RECORDS SUMMARY | 2025-01-27 11:44 | XMS_ITS | Clinical Summary ---
Author Organization [facility] Address [address], [address] [address] Phone Care Team Providers Care Multi Skilled Operator Name Role Phone Chaitanya Landrum MD Primary Care Provider [phone] Medications polyethylene glycol (MIRALAX) Powder Mix the entire bottle with 64 oz of a clear liquid. Use as directed by the office for colonoscopy prep. 255 g 7 Active allopurinol (ZYLOPRIM) 300 MG Tablet Take 300 mg by mouth daily. Active Family History Medical History Relation Name Comments Colon Cancer Brother Prostate Cancer Father Relation Name Status Comments Brother Father Social History Tobacco Use Types Packs/Day Years Used Date Smoking Tobacco: Never Smokeless Tobacco: Never Alcohol Use Standard Drinks/Week Comments Yes 0 (1 standard drink = 0.6 oz pur e alcohol) Sex and Gender Information Value Date Recorded Sex Assigned at Not on file Legal Sex Male 10:37 PM CDT Gender Identity Not on file Sexual Orientation Not on file Plan of Treatment Health Maintenance Due Date Last Done Comments Hepatitis C Virus (HCV) Screening 1955 TdaP Immunization 1955 Cologuard 2005 Immunochemical Fecal Occult Blood 2005 Pneumococcal Immunization (5 0+ years) (1 of 1 - PCV) 2005 Zoster Immunization (1 of 2) 2005 PSA Discussion 2010 Colonoscopy 08/01/2022 08/01/2017 Colorectal Cancer Screening 08/01/2022 Influenza Immunization (#1) 2024 SARS-COV-2 Immunization ( season) 2024 Respiratory Syncytial Virus (RSV) Immunization (Adult) (1 - 1-dose 75+ series) 2030 Hepatitis B Immunization Aged Out No longer eligible based on patient's age to complete this topic Meningococcal Immunization (ACWY) Aged Out No longer eligible based on patient's age to complete this topic Rotavirus Immunization Aged Out No lo nger eligible based on patient's age to complete this topic Procedures Procedure Name Priority Date/Time Associated Diagnosis Comments COLONOSCOPY Routine 08/01/2017 from Last 3 Months or Most Recently Relevant to Health Maintenance Results * COLONOSCOPY (08/01/2017) Uriel Garcia MD PROCEDURE/MINOR SURGICA L ORDERABLES Final Result from Last 3 Months or Most Recently Relevant to Health Maintenance Care Teams Multi Skilled Operator Relationship Specialty Start Date End Date Chaitanya Landrum MD [address] [place], [place] [id number] PCP - General Family Medicine 03/14/17
== END 2025-01-27 11:40 | disposition home or self-care (01) ==
PROVIDERS: PCP Family Medicine; Visit Provider Family Medicine
DX: G89.29 Other chronic pain (principal); M43.6 Torticollis; M54.2 Cervicalgia; M47.896 Other spondylosis, lumbar region
CPT/HCPCS: 72050

== ENCOUNTER 2025-05-21 11:40 | Outpatient (CLI) | payer MEDICARE, SELFPAY ==
--- OUTSIDE RECORDS SUMMARY | 2021-09-21 16:16 | XMS_ITS | Continuity of Care Document ---
Author Organization [facility] Address [address] [place] [address] Phone Care Team Providers Care Take Off Worker Name Role Phone Roger GEE MD, Nando Unavailable Unavailable Allergies, Adverse Reactions, Alerts Substance Reaction Status Criticality No Known Allergies Active No Inform ation Medications Medication Instructions Dosage Effective Dates (start - stop) Status Comments tramadol 50 mg tablet take 1 (50MG) by Oral route every 6 hours as needed - Active ALLOPURINOL (unknown strength) Not Available - Active pravastatin 10 mg tablet - Active Bactrim DS 800 mg-160 mg tablet take 1 tablet by oral route twice daily for 10 days - No Longer Active Procedures Procedure Date Global/Postop followup visit Global/Postop followup visit X-ray exam shoulder minimum 2 views Global/Postop followup visit Disability Form Office/outpatient visit,est, mod 2019 X-ray exam shoulder minimum 2 views X-ray exam shoulder minimum 2 views Kenalog Triamcinolone acetonide inj Asp/Injection, Major Joint W/ Ultrasound Kenalog Triamcinolone acetonide inj Asp/Injection, Major Joint W/ Ultrasound Office/outpatient visit,new, mod 2018 Advance Directives Directive Yes / No Effective Date File Name No Information Encounters Encounter Description Practice Location Reason(s) For Visit Diagnoses Date Provider Providers Copied on Encounter [facility], [address] [address], [place], [place], [id number], [place] [phone] [facility] [employer] [facility] No Information 2 Roger Collier. [address] [address], [place], [place], [id number] , [place]. tel: [phone] [facility] [employer] [facility], [address] [place] [address], [id number], [place] [phone] [facility] [employer] [facility] left shoulder (chief complaint) Bicipital tendinitis, left shoulderPresence of left artificial shoulder joint 1 Violet Powell. [address] [place] [address], [id number] , [place]. tel: [phone] [facility] [employer] [facility], [address] [place] [address], [id number], [place] [phone] [facility] [employer] [facility] Left shoulder (chief complaint) Presence of left artificial shoulder joint 0 Violet Powell. [address] [place] [address], [id number] , [place]. tel: [phone] [facility] [employer] [facility], [address] [place] [address], [id number], [place] [phone] [facility] [employer] [facility] left shoulder (chief complaint) Presence of left artificial shoulder joint 0 Glo Winters. [address], [id number] , [place]. tel: [phone] [facility] [employer] [facility], [address] [place] [address], [id number], [place] tel:[phone] [facility] [employer] [facility] No Information 0 Violetjanusz Powell. [address] [place] [address], [id number] , [place]. tel: [phone] Office/outpa tient visit,est, mod [facility], [address] [place] [address], [id number], tel:[phone] [facility] Shoulder Pain (chief complaint) Primary osteoarthritis, left shoulder 0 Violet Powell. [address] [place] [address], [address], [id number] , . tel:[phone] Office/outpa [place]ient visit,new, [facility], [address], [id number], [phone] [facility] shoulder pain on the left greater than the right (chief complaint) Primary osteoarthritis, left shoulderPrimary osteoarthritis, right shoulderBicipital tendinitis, left shoulderBicipital tendinitis, right shoulder 9 Roger Collier. [address] [place] [address], [id number] , . tel: [phone] Referring Provider: Nando Cerda, [address] [place] [address], [place], [address] . tel:[phone] Family History Family Member Type Diagnosis Age At Onset Brother Problem (finding) Cancer, unknown Father Problem (finding) Cancer, unknown Father Problem (finding) Osteoarthritis Brother Problem (finding) Gout Payers Payer name Insurance type Covered libertarian ID Authoriza tion(s) [facility] CI [id number] Social History Type Description Quantity Date Captured Comments Sex Male Smoking Status No Information Chief Complaint And Reason For Visit No Information Reason For Referral Reason For Referral No Information Plan Of Treatment Date Type Action Status Referral Ordered: X-ray exam shoulder minimum 2 views LT ordered Referral Ordered: CT scan Upper Extrem W/o Contrast LT shoulder Appointment date/timeframe: 04/15/2020 ordered Referral Ordered: X-ray exam shoulder minimum 2 views RT shoulder ordered Referral Ordered: X-ray exam shoulder minimum 2 views LT shoulder ordered History Of Present Illness Encounter Date Complaint History Of Prese nt Illness left shoulder Lee returns to the office today for his left shoulder. Left shoulder Patient comes in today for follow up of his left total shoulder arthroplasty left no Howard returns to the office today for his left shoulder. He is status post left TSA. DOS 05/26/2020. He is doing well. He continues to wear the sling and take Percocet prn pain. X-rays were obtained in the office today. Shoulder Pain Location: should er. Hand Dominance: right. Additional information: Patient comes in today for follow up of his left shoulder and to discuss a total shoulder arthroplasty. shoulder pain on the left greater than the right Irvin Jacobs is a 63 year old male. He presents with pain and decreased range of motion on the left greater than the right. He states that the symptoms have been chronic non-traumatic. The symptoms occur constantly with intermittent worsening. The problem is unchanged. Currently the patient states that the symptoms are moderate-severe. The pain is described as aching, sharp and stabbing. The symptoms occur with activity. The symptoms are aggravated by daily activities, lifting away from the body, reaching overhead, sleeping in any position and moving the arm suddenly. Irvin states that the symptoms are relieved by rest. Pertinent negatives include fever, radicular symptoms, numbness and weakness. The patient has had a previous x-ray. Prior NSAIDs include unspecified NSAIDS. He has had no previous treatment. Patient has had no prior surgeries. Functional Status Date Functional Assessmen t No Information Instructions Date Instruction Additional Infor gauri The patient would li ke to proceed with a glenohumeral injection today, along with icing, NSAIDs and/or Tylenol, activity modifications, and home strengthening exercises as appropriate. They were given a prescription for physical therapy and an oral anti-inflammatory with their PCP's approval. We discussed in general the option of shoulder arthroplasty vs. arthroscopic CAM procedure as indicated in the future if non-surgical treatment fails to provide adequate relief or significant duration of improvement. The only option on the left would be TSA, CAM procedure might be possible on the right based on the films today. This will be discussed in more detail should non-operative treatment fail. We discussed any arthroplasty could not occur sooner than 3 months post injection due to jaycee-prosthetic infection concerns. They will follow up as needed should symptoms worsen or return, and know to call at an time with questions or concerns. Questions answered, verbalized understanding. Related to Bicipital tendinitis, right shoulder Assessments Type Assessment Date No Information Patient Care Teams Name Effective Dates (start - stop) Status Members No Information
--- OUTSIDE RECORDS SUMMARY | 2025-05-21 13:15 | XMS_ITS | Clinical Summary ---
Author Organization [facility] on Address [address] [place] [address] Phone Care Team Providers Care Aerosol Supervisor Name Role Phone Alexandra Eid MD Primary Care Provider Social History Tobacco Use Types Packs/Day Years Used Date Smoking Tobacco: Never Assessed Sex and Gender Information Value Date Recorded Sex Assigned at Not on file Legal Sex Male 2:25 PM CONTACT CENTER ANALYST Gender Identity Not on file Sexual Orientation [...] - 1-dose 75+ series) 2030 Care Teams Aerosol Supervisor Relationship Specialty Start Date End Date Alexandra Eid MD [address] [place] [address] PCP - General Family Practice 06/25/18
--- OUTSIDE RECORDS SUMMARY | 2025-05-21 13:15 | XMS_ITS | Clinical Summary ---
Author Organization [facility] Address [address], [address] [address] Phone Care Team Providers Care Snowboard Instructor Name Role Phone Chaitanya Landrum MD Primary Care Provider [phone] Medications polyethylene glycol (MIRALAX) Powder Mix the [...] (HCV) Screening 1955 TdaP Immunization 1955 Cologuard 2000 Immunochemical Fecal Occult Blood 2000 Pneumococcal Immunization (5 0+ years) (1 of 1 - PCV) 2005 Zoster Immunization (1 of 2) 2005 Colonoscopy 08/01/2022 08/01/2017 Colorectal Cancer Screening 08/01/2022 Influenza Immunization (#1) 2025 SARS-COV-2 Immunization ( season) 2025 Respiratory Syncytial Virus (RSV) Immunization (Adult) (1 - 1-dose 75+ series) 2030 Hepatitis B Immunization Aged Out No longer eligible based on patient's age to complete this topic Human Papillomavirus (HPV) Immunization Aged Out No longer eligible b ased on patient's age to complete this topic [...] Recently Relevant to Health Maintenance Care Teams Snowboard Instructor Relationship Specialty Start Date End Date Chaitanya Landrum MD [address] [place] [address] PCP - General Family Medicine 03/14/17
[2025-05-21 13:19] LABS: Hematocrit 45.4 % (42.0-52.0); Hemoglobin 15.7 g/dL (14.0-18.0); Immature Granulocyte Percent A 0.2 % (0-0.5); Lymphocytes Absolute Auto 1.40 K/mm3 (0.9-3.2); Mean Corpuscular HGB Conc 34.6 g/dl (32-36); Mean Corpuscular Hemoglobin 30.8 pg (26-34); Mean Corpuscular Volume 89.2 fl (80-100); Nucleated Red Blood Cells Absolute Auto 0.000 K/mm3 (0.0-0.012); Nucleated Red Blood Cells Perc 0.0 % (0.0-0.2); Platelet Count Result 148 k/mm3 (150-375); Red Blood Count 5.09 M/mm3 (4.6-6.20); White Blood Count 6.0 K/mm3 (4.5-10.0)
[2025-05-21 13:48] LABS: Thyroid Stimulating Hormone Reflex 3.250 uIU/mL (0.465-4.68)
[2025-05-21 13:53] LABS: Hemoglobin A1C 5.7 % (<5.7)
[2025-05-21 14:00] LABS: Alanine Aminotransferase 35 U/L (6-50); Albumin Level 4.8 g/dL (3.5-5.1); Alkaline Phosphatase 47 U/L (38-126); Anion Gap 7 mmol/L (4-12); Aspartate Amino Transferase 36 U/L (17-59); Bilirubin,Total 0.8 mg/dL (0.2-1.3); Blood Urea Nitrogen 13 mg/dL (9-20); Calcium 9.8 mg/dL (8.4-10.2); Carbon Dioxide 28 mmol/L (22-30); Chloride 103 mmol/L (98-107); Cholesterol 209 mg/dL (0-200); Estimated Glomerular Filt Rate 52; Glucose 117 mg/dL (65-110); HDL Direct 50 mg/dL; Potassium 4.8 mmol/L (3.4-5.0); Sodium 138 mmol/L (137-145); Total Protein 7.3 g/dL (6.3-8.2); Triglycerides 186 mg/dL (<150)
[2025-05-21 15:47] LABS: Prostate Specific Antigen 4.0 ng/mL (< OR = 4.0)
[2025-05-21 16:06] LABS: Vitamin B12 857.0 pg/mL (239-931)
== END 2025-05-21 11:41 | disposition home or self-care (01) ==
LOC: ANHGOSHLAB 11:41
PROVIDERS: PCP Family Medicine; Visit Provider Family Medicine
DX: E78.5 Hyperlipidemia, unspecified (principal); I10 Essential (primary) hypertension; R73.03 Prediabetes; E53.8 Deficiency of other specified B group vitamins; E55.9 Vitamin D deficiency, unspecified; Z00.00 Encounter for general adult medical examination without abnormal findings; Z12.5 Encounter for screening for malignant neoplasm of prostate
CPT/HCPCS: 36415; 80053; 80061; 82306; 82607; 83036; 84153; 84443; 85025; G0103

== ENCOUNTER 2025-06-23 10:12 | Outpatient (CLI) | payer MEDICARE, SELFPAY ==
--- OUTSIDE RECORDS SUMMARY | 2025-06-23 11:29 | XMS_ITS | Clinical Summary ---
Author Organization [facility] Address [address] [place], [address] [address] Phone Care Team Providers Care Pouncer Name Role Phone Chaitanya Landrum MD Primary Care Provider [phone] Medications polyethylene glycol (MIRALAX) Powder Mix the [...] Recently Relevant to Health Maintenance Care Teams Pouncer Relationship Specialty Start Date End Date Chaitanya Landrum MD [address] [place] [address] PCP - General Family Medicine 03/14/17
--- OUTSIDE RECORDS SUMMARY | 2025-06-23 11:29 | XMS_ITS | Clinical Summary ---
Author Organization [facility] on Address [address] [place] [address] Phone Care Team Providers Care Delivery Director Name Role Phone Alexandra Eid MD Primary Care Provider Social History Tobacco Use Types Packs/Day Years Used Date Smoking Tobacco: Never Assessed Sex and Gender Information Value Date Recorded Sex Assigned at Not on file Legal Sex Male 2:25 PM [employer]OUND [employer] Gender Identity Not on file Sexual Orientation [...] - 1-dose 75+ series) 2030 Care Teams Delivery Director Relationship Specialty Start Date End Date Alexandra Eid MD [address] [place] [id number] PCP - General Family Practice 06/25/18
[2025-06-23 19:44] LABS: Albumin Level 4.6 g/dL (3.5-5.1); Anion Gap 6 mmol/L (4-12); Blood Urea Nitrogen 21 mg/dL (9-20); Calcium 9.7 mg/dL (8.4-10.2); Carbon Dioxide 30 mmol/L (22-30); Chloride 100 mmol/L (98-107); Glucose 111 mg/dL (65-110); Potassium 4.8 mmol/L (3.4-5.0); Sodium 136 mmol/L (137-145)
[2025-06-23 20:01] LABS: Estimated Glomerular Filt Rate 43
== END 2025-06-23 10:13 | disposition home or self-care (01) ==
LOC: ANHGOSHLAB 10:13
PROVIDERS: PCP Family Medicine; Visit Provider Family Medicine
DX: N28.9 Disorder of kidney and ureter, unspecified (principal)
CPT/HCPCS: 36415; 80069